=== PATIENT | female | born 1995 | race African-American/Black ===

== ENCOUNTER 2017-01-26 01:25 | Inpatient (IN) | payer BC, OTHER ==
[2017-01-26] VITALS (12 sets, daily range): BP systolic 88–127; BP diastolic 43–77
[~2017-01-26] VITALS: Ht 157.5 cm; Wt 73.9 kg
--- NOTE | 2017-01-26 01:57 | PHYS DOC ---
Past Medical History Past Medical History: No Pertinent History Past Surgical History: No Surgical History Alcohol Use: Occasionally Drug Use: None Adult General Chief Complaint Chief Complaint: ABDOMINAL PAIN HPI HPI Patient is a 21 year old female who presents with complaint of abdominal pain that started earlier this evening. Patient states that the pain came on suddenly. Patient states that she gets the pain in waves and describes the pain as sharp. Patient currently rates her pain as 10 out of 10. Patient denies any associated fever. Patient states that the pain stays localized to the upper abdomen. Patient has had nausea but no vomiting. Patient denies any significant past medical history or surgical history. Patient's last missed her period was 3 days ago. Patient has not taken any medications to help with her symptoms. Patient denies any known exacerbating factors. Review of Systems Review of Systems Constitutional: Denies fever or chills [] Eyes: Denies change in visual acuity, redness, or eye pain [] HENT: Denies nasal congestion or sore throat [] Respiratory: Denies cough or shortness of breath [] Cardiovascular: Denies chest pain or edema [] GI: Abdominal pain, nausea, denies vomiting, bloody stools or diarrhea [] : Denies dysuria or hematuria [] Musculoskeletal: Denies back pain or joint pain [] Integument: Denies rash or skin lesions [] Neurologic: Denies headache, focal weakness or sensory changes [] Current Medications Current Medications Current Medications Medications (Trade) Dose Ordered Sig/[facility] Start Time Stop Time Status Last Admin Dose Admin Famotidine (Pepcid) 20 mg 1X ONCE 01/26/17 02:00 01/26/17 02:01 DC 01/26/17 02:11 20 MG Fentanyl Citrate 50 mcg 50 mcg PRN Q15MIN PRN 01/26/17 02:00 01/27/17 01:59 01/26/17 02:11 50 MCG Ondansetron HCl (Zofran) 4 mg 1X ONCE 01/26/17 02:00 01/26/17 02:01 DC 01/26/17 02:11 4 MG Sodium Chloride (Iv Sodium Chloride 0.9% 1000ml Bag) 1,000 ml @ 1,000 mls/hr Q1H 01/26/17 02:00 01/26/17 02:59 DC 01/26/17 02:11 1,000 MLS/HR Allergies Allergies Allergies Coded Allergies Type Severity Reaction Last Updated Verified No Known Drug Allergies 01/26/17 No Physical Exam Physical Exam Constitutional: Alert, afebrile, appears in moderate to severe discomfort. [] HENT: Normocephalic, atraumatic, bilateral external ears normal, oropharynx moist, no oral exudates, nose normal. [] Eyes: PERRLA, EOMI, conjunctiva normal, no discharge. [] Neck: Normal range of motion, no tenderness, supple, no stridor. [] Cardiovascular:Heart rate regular rhythm, no murmur [] Lungs & Thorax: Bilateral breath sounds clear to auscultation [] Abdomen: Bowel sounds normal, soft, epigastric and right upper quadrant tenderness to palpation, positive Mejia's sign, no masses, no pulsatile masses. [] Skin: Warm, dry, no erythema, no rash. [] Back: No tenderness, no CVA tenderness. [] Extremities: No tenderness, no cyanosis, no clubbing, ROM intact, no edema. [] Neurologic: Alert and oriented X 3, normal motor function, normal sensory function, no focal deficits noted. [] Current Patient Data Vital Signs Vital Signs Date Time Temp Pulse Resp B/P Pulse Ox O2 Delivery O2 Flow Rate FiO2 01/26/17 01:30 97.8 72 19 125/79 95 Room Air 97.8 Lab Values Laboratory Tests Test 01/26/17 01:22 01/26/17 01:39 01/26/17 02:05 POC Urine HCG, Qualitative Hcg negative (Negative) White Blood Count 13.3x10^3/uL (4.0-11.0) H Red Blood Count 5.20x10^6/uL (3.50-5.40) Hemoglobin 11.5g/dL (12.0-15.5) L Hematocrit 37.0% (36.0-47.0) Mean Corpuscular Volume 71fL (79-100) L Mean Corpuscular Hemoglobin 22pg (25-35) L Mean Corpuscular Hemoglobin Concent 31g/dL (31-37) Red Cell Distribution Width 14.9% (11.5-14.5) H Platelet Count 255x10^3/uL (140-400) Neutrophils (%) (Auto) 51% (31-73) Lymphocytes (%) (Auto) 39% (24-48) Monocytes (%) (Auto) 7% (0-9) Eosinophils (%) (Auto) 3% (0-3) Basophils (%) (Auto) 1% (0-3) Neutrophils # (Auto) 6.7x10^3uL (1.8-7.7) Lymphocytes # (Auto) 5.2x10^3/uL (1.0-4.8) H Monocytes # (Auto) 1.0x10^3/uL (0.0-1.1) Eosinophils # (Auto) 0.3x10^3/uL (0.0-0.7) Basophils # (Auto) 0.1x10^3/uL (0.0-0.2) Sodium Level 142mmol/L (136-145) Potassium Level 4.0mmol/L (3.5-5.1) Chloride Level 104mmol/L (98-107) Carbon Dioxide Level 27mmol/L (21-32) Anion Gap 11 (6-14) Blood Urea Nitrogen 10mg/dL (7-20) Creatinine 0.8mg/dL (0.6-1.0) Estimated GFR (Cockcroft-Gault) 107.6 BUN/Creatinine Ratio 13 (6-20) Glucose Level 114mg/dL (70-99) H Calcium Level 9.0mg/dL (8.5-10.1) Total Bilirubin 0.2mg/dL (0.2-1.0) Aspartate Amino Transferase (AST) 47U/L (15-37) H Alanine Aminotransferase (ALT) 29U/L (14-59) Alkaline Phosphatase 58U/L (46-116) Total Protein 7.4g/dL (6.4-8.2) Albumin 3.6g/dL (3.4-5.0) Albumin/Globulin Ratio 0.9 (1.0-1.7) L Lipase 131U/L (73-393) Urine Collection Type Unknown Urine Color Yellow Urine Clarity Cloudy Urine pH 8.0 Urine Specific [place] >=1.030 Urine Protein 30mg/dL (NEG-TRACE) Urine Glucose (UA) Negativemg/dL (NEG) Urine Ketones (Stick) Negativemg/dL (NEG) Urine Blood Negative (NEG) Urine Nitrite Negative (NEG) Urine Bilirubin Negative (NEG) Urine Urobilinogen Dipstick 1.0mg/dL (0.2 mg/dL) Urine Leukocyte Esterase Negative (NEG) Urine RBC 3-5/HPF (0-2) Urine WBC Occ/HPF (0-4) Urine Squamous Epithelial Cells Many/LPF Urine Bacteria Moderate/HPF (0-FEW) Urine Mucus Mod/LPF Laboratory Tests 01/26/17 01:39 Laboratory Tests 01/26/17 01:39 EKG EKG Interpreted by me: Heart rate 72, sinus rhythm, normal intervals, normal axis, no acute ST/T-wave abnormalities present [] Radiology/Procedures Radiology/Procedures [facility] [address] [place] [address] IMAGING REPORT Signed PATIENT: MAYO CUI ACCOUNT: [id number] : 1995 LOCATION: ER AGE: 21 SEX: F EXAM STATUS: REG ER ORD. PHYSICIAN: RADHA HIRSCH MD REASON: epigastric and right upper quadrant pain PROCEDURE: ABDOMEN LTD Examination: Ultrasound right upper quadrant. History: History of right upper quadrant pain, elevated WBC count. COMPARISON None available Findings : The visualized pancreas grossly appears unremarkable. The common bile duct measures 6 millimeters in transverse dimension. The liver measures 16 centimeters. Gallstones with sludge identified in the gallbladder. One of the gallstone appears to be in the fundus of the gallbladder distal to the mucosal fold. The gallbladder wall thickness measures 3.2 millimeters. The examination is positive for ultrasonographic evidence of Mejia's sign. The right kidney measures 10.1 centimeters in length. Impression: 1. 3 gallstones with sludge identified within the gallbladder, 1 of the stones appears to be in the fundus of the stomach beyond the mucosal fold within the gallbladder. There is mild thickened appearance of the gallbladder wall. Examination is positive for ultrasonographic evidence of Mejia's sign. Correlate for cholecystitis. 2. The common bile duct measures 6 millimeters in transverse dimension which is mildly dilated. Electronically signed by: Andi Ochoa (Jan 26, 2017 03:13:29) DICTATED and SIGNED BY: ANDI OCHOA MD DATE: 01/26/17312 CC: ALISHA MENARD; RADHA HIRSCH MD ~ [] Course & Med Decision Making Course & Med Decision Making Pertinent Labs and Imaging studies reviewed. (See chart for details) Patient was treated with IV fluids, fentanyl, and Zofran. Patient's symptoms have improved mildly however patient still complains of significant pain. The patient's ultrasound shows continued suspicion for acute cholecystitis. I consult to Dr. Guajardo of general surgery who agreed to see patient this morning in hospital. Patient admitted to Dr. Bermudez. Dragon Disclaimer Dragon Disclaimer This electronic medical record was generated, in whole or in part, using a voice recognition dictation system. Departure Departure Impression: Primary Impression: Acute cholecystitis Disposition: ADMITTED INPATIENT Admitting Physician: Denise Bermudez Condition: STABLE RADHA HIRSCH MD Jan 26, 2017 01:57
[2017-01-26] MEDS ORDERED: IV NORMAL SALINE 1000ML BAG 1,000 ML IV SCH (02:00)
[2017-01-26] MEDS ORDERED: FAMOTIDINE 20 MG/2 ML VIAL IVP ONE (02:00)
[2017-01-26] MEDS ORDERED: ONDANSETRON PF 4 MG/2 ML VIAL. IV ONE (02:00)
[2017-01-26 02:01] LABS: BASO # 0.1 x10^3/uL (0.0-0.2); BASO % 1 % (0-3); EOS % 3 % (0-3); HEMOGLOBIN 11.5 g/dL (12.0-15.5); LYMPH # 5.2 x10^3/uL (1.0-4.8); LYMPH % 39 % (24-48); MEAN CORPUSCULAR HEMOGLOBIN 22 pg (25-35); MEAN CORPUSCULAR HGB CONC 31 g/dL (31-37); MEAN CORPUSCULAR VOLUME 71 fL (79-100); MONO % 7 % (0-9); NEUT % 51 % (31-73); PLATELET COUNT 255 x10^3/uL (140-400); RED CELL DISTRIBUTION WIDTH 14.9 % (11.5-14.5); WHITE BLOOD COUNT 13.3 x10^3/uL (4.0-11.0)
[2017-01-26] MEDS: FENTANYL PF 100 MCG/2 ML VIAL. IV PRN ×8 (02:11→20:23)
[2017-01-26 02:22] LABS: CREATININE 0.8 mg/dL (0.6-1.0); GFR 107.6
[2017-01-26 02:26] LABS: BILIRUBIN,URINE NEGATIVE (NEG); GLUCOSE,URINE NEGATIVE (NEG); NITRITE,URINE NEGATIVE (NEG); PROTEIN,URINE 30 mg/dL (NEG-TRACE)
[2017-01-26 02:28] LABS: ALBUMIN 3.6 g/dL (3.4-5.0); ALBUMIN/GLOBULIN RATIO 0.9 (1.0-1.7); TOTAL BILIRUBIN 0.2 mg/dL (0.2-1.0); TOTAL PROTEIN 7.4 g/dL (6.4-8.2)
[2017-01-26 02:40] LABS: BACTERIA,URINE MODERATE /HPF (0-FEW); SQUAMOUS EPITHELIAL CELL,UR MANY /LPF; WBC,URINE OCC /HPF (0-4)
--- NOTE | 2017-01-26 03:15 | RAD ---
Examination: Ultrasound right upper quadrant. History: History of right upper quadrant pain, elevated WBC count. COMPARISON None available Findings : The visualized pancreas grossly appears unremarkable. The common bile duct measures 6 millimeters in transverse dimension. The liver measures 16 centimeters. Gallstones with sludge identified in the gallbladder. One of the gallstone appears to be in the fundus of the gallbladder distal to the mucosal fold. The gallbladder wall thickness measures 3.2 millimeters. The examination is positive for ultrasonographic evidence of Mejia's sign. The right kidney measures 10.1 centimeters in length. Impression: 1. 3 gallstones with sludge identified within the gallbladder, 1 of the stones appears to be in the fundus of the stomach beyond the mucosal fold within the gallbladder. There is mild thickened appearance of the gallbladder wall. Examination is positive for ultrasonographic evidence of Mejia's sign. Correlate for cholecystitis. 2. The common bile duct measures 6 millimeters in transverse dimension which is mildly dilated. Electronically signed by: Andi Ochoa (Jan 26, 2017 03:13:29)
[2017-01-26] MEDS ORDERED: ONDANSETRON PF 4 MG/2 ML VIAL. IV PRN (04:00)
[2017-01-26 05:22] LABS: HYPOCHROMIA MOD; MICROCYTOSIS MOD; PLT ESTIMATE ADEQUATE (ADEQUATE); TARGET CELLS OCC; TEAR DROP CELLS OCC
--- NOTE | 2017-01-26 08:15 | PDOC2 ---
KELLI GUIDO [facility]AMP[facility] COORDINATOR 01/26/17 0815: CONSULT Date of Consult Date of Consult DATE: 01/26/17 TIME: 08:09 Reason for Consult Reason for Consult: cholecystitis Referring Physician Referring Physician: ER Identification/Chief Complaint Chief Complaint abdominal pain Source Source: Chart review, Patient History of Present Illness Reason for Visit: Abdominal pain intermittently, thought it was gas pains, aggravated by eating anything. Yesterday the pain was severe, epigastric, RUQ with radiation to her back. Associated nausea, no emesis. No constipation or diarrhea. + difficulty taking a deep breath Past Medical History Past Medical History no pertinent hx Past Surgical History Past Surgical History: No pertinent history Family History Family History: Other (gallbladder disease in mom) Social History No ALCOHOL: social Drugs: None Lives: with Family Current Problem List Problem List Problems Medical Problems: (1) Acute cholecystitis Status: Acute Current Medications Current Medications Current Medications Fentanyl Citrate 50 mcg 50 mcg PRN Q15MIN PRN IV PAIN GREATER THAN 3/10 Last administered on 01/26/17 03:35; Start 01/26/17 at 02:00; Stop 01/27/17 at 01:59 Sodium Chloride (Iv Sodium Chloride 0.9% 1000ml Bag) 1,000 ml @ 1,000 mls/hr Q1H IV Last administered on 01/26/17 02:11; Start 01/26/17 at 02:00; Stop at 02:59; Status DC Ondansetron HCl (Zofran) 4 mg 1X ONCE IV Last administered on 01/26/17 02:11 ; Start 01/26/17 at 02:00; Stop 01/26/17 at 02:01; Status DC Famotidine (Pepcid) 20 mg 1X ONCE IVP Last administered on 01/26/17 02:11; Start 01/26/17 at 02:00; Stop 01/26/17 at 02:01; Status DC Ondansetron HCl (Zofran) 4 mg PRN Q8HRS PRN IV NAUSEA/VOMITING; Start 01/26/17 at 04:00; Stop 01/27/17 at 03:59 Fentanyl Citrate (Fentanyl 2ml Vial) 50 mcg PRN Q1HR PRN IV PAIN; Start at 04:00; Stop 01/27/17 at 03:59 Allergies Allergies: Coded Allergies: No Known Drug Allergies (Unverified , 01/26/17) ROS General: YES: Chills, No: Other (fevers) PSYCHOLOGICAL ROS: No: Anxiety, Depression Eyes: No Blurry vision, No Double vision HEENT: No: Heacaches, Sore Throat Hematological and Lymphatic: No: Bleeding Problems, Blood Clots Respiratory: No: Cough, Shortness of breath (due to acute abdominal pain) Cardiovascular: No Chest Pain, No Palpitations Gastrointestinal: Yes Other (see hpi) Genitourinary: No Dysuria, No Hematuria Musculoskeletal: No Joint Pain, No Muscle Pain Neurological: No Confusion, No Numbness/Tingling Skin: No Pruritus, No Rash Physical Exam General: Alert, Oriented X3, Cooperative, No acute distress HEENT: PERRLA, Mucous membr. moist/pink Lungs: Clear to auscultation, Normal air movement Heart: Regular rate, Normal S1, Normal S2, No murmurs Abdomen: Soft, Other (ND, tender to epigastric, RUQ) Extremities: No clubbing, No cyanosis Skin: No rashes, No breakdown Neuro: Normal speech, Sensation intact Psych/Mental Status: Mental status NL, Mood NL MUSCULOSKELETAL: No deformity, No swelling Vitals VITALS Vital Signs Date Time Temp Pulse Resp B/P Pulse Ox O2 Delivery O2 Flow Rate FiO2 01/26/17 04:47 97.8 72 20 127/77 98 Room Air 97.8 Labs Labs Laboratory Tests Test 01/26/17 01:22 01/26/17 01:39 01/26/17 02:05 Bedside Urine HCG, Qualitative Hcg negative (Negative) White Blood Count 13.3x10^3/uL (4.0-11.0) Red Blood Count 5.20x10^6/uL (3.50-5.40) Hemoglobin 11.5g/dL (12.0-15.5) Hematocrit 37.0% (36.0-47.0) Mean Corpuscular Volume 71fL (79-100) Mean Corpuscular Hemoglobin 22pg (25-35) Mean Corpuscular Hemoglobin Concent 31g/dL (31-37) Red Cell Distribution Width 14.9% (11.5-14.5) Platelet Count 255x10^3/uL (140-400) Neutrophils (%) (Auto) 51% (31-73) Lymphocytes (%) (Auto) 39% (24-48) Monocytes (%) (Auto) 7% (0-9) Eosinophils (%) (Auto) 3% (0-3) Basophils (%) (Auto) 1% (0-3) Neutrophils # (Auto) 6.7x10^3uL (1.8-7.7) Lymphocytes # (Auto) 5.2x10^3/uL (1.0-4.8) Monocytes # (Auto) 1.0x10^3/uL (0.0-1.1) Eosinophils # (Auto) 0.3x10^3/uL (0.0-0.7) Basophils # (Auto) 0.1x10^3/uL (0.0-0.2) Platelet Estimate Adequate (ADEQUATE) Giant Platelets Occ Hypochromasia Mod Microcytosis Mod Target Cells Occ Tear Drop Cells Occ Sodium Level 142mmol/L (136-145) Potassium Level 4.0mmol/L (3.5-5.1) Chloride Level 104mmol/L (98-107) Carbon Dioxide Level 27mmol/L (21-32) Anion Gap 11 (6-14) Blood Urea Nitrogen 10mg/dL (7-20) Creatinine 0.8mg/dL (0.6-1.0) Estimated GFR (Cockcroft-Gault) 107.6 BUN/Creatinine Ratio 13 (6-20) Glucose Level 114mg/dL (70-99) Calcium Level 9.0mg/dL (8.5-10.1) Total Bilirubin 0.2mg/dL (0.2-1.0) Aspartate Amino Transf (AST/SGOT) 47U/L (15-37) Alanine Aminotransferase (ALT/SGPT) 29U/L (14-59) Alkaline Phosphatase 58U/L (46-116) Total Protein 7.4g/dL (6.4-8.2) Albumin 3.6g/dL (3.4-5.0) Albumin/Globulin Ratio 0.9 (1.0-1.7) Lipase 131U/L (73-393) Urine Collection Type Unknown Urine Color Yellow Urine Clarity Cloudy Urine pH 8.0 Urine Specific [place] >=1.030 Urine Protein 30mg/dL (NEG-TRACE) Urine Glucose (UA) Negativemg/dL (NEG) Urine Ketones (Stick) Negativemg/dL (NEG) Urine Blood Negative (NEG) Urine Nitrite Negative (NEG) Urine Bilirubin Negative (NEG) Urine Urobilinogen Dipstick 1.0mg/dL (0.2 mg/dL) Urine Leukocyte Esterase Negative (NEG) Urine RBC 3-5/HPF (0-2) Urine WBC Occ/HPF (0-4) Urine Squamous Epithelial Cells Many/LPF Urine Bacteria Moderate/HPF (0-FEW) Urine Mucus Mod/LPF Laboratory Tests Test 01/26/17 01:22 01/26/17 01:39 01/26/17 02:05 Bedside Urine HCG, Qualitative Hcg negative (Negative) White Blood Count 13.3x10^3/uL (4.0-11.0) Red Blood Count 5.20x10^6/uL (3.50-5.40) Hemoglobin 11.5g/dL (12.0-15.5) Hematocrit 37.0% (36.0-47.0) Mean Corpuscular Volume 71fL (79-100) Mean Corpuscular Hemoglobin 22pg (25-35) Mean Corpuscular Hemoglobin Concent 31g/dL (31-37) Red Cell Distribution Width 14.9% (11.5-14.5) Platelet Count 255x10^3/uL (140-400) Neutrophils (%) (Auto) 51% (31-73) Lymphocytes (%) (Auto) 39% (24-48) Monocytes (%) (Auto) 7% (0-9) Eosinophils (%) (Auto) 3% (0-3) Basophils (%) (Auto) 1% (0-3) Neutrophils # (Auto) 6.7x10^3uL (1.8-7.7) Lymphocytes # (Auto) 5.2x10^3/uL (1.0-4.8) Monocytes # (Auto) 1.0x10^3/uL (0.0-1.1) Eosinophils # (Auto) 0.3x10^3/uL (0.0-0.7) Basophils # (Auto) 0.1x10^3/uL (0.0-0.2) Platelet Estimate Adequate (ADEQUATE) Giant Platelets Occ Hypochromasia Mod Microcytosis Mod Target Cells Occ Tear Drop Cells Occ Sodium Level 142mmol/L (136-145) Potassium Level 4.0mmol/L (3.5-5.1) Chloride Level 104mmol/L (98-107) Carbon Dioxide Level 27mmol/L (21-32) Anion Gap 11 (6-14) Blood Urea Nitrogen 10mg/dL (7-20) Creatinine 0.8mg/dL (0.6-1.0) Estimated GFR (Cockcroft-Gault) 107.6 BUN/Creatinine Ratio 13 (6-20) Glucose Level 114mg/dL (70-99) Calcium Level 9.0mg/dL (8.5-10.1) Total Bilirubin 0.2mg/dL (0.2-1.0) Aspartate Amino Transf (AST/SGOT) 47U/L (15-37) Alanine Aminotransferase (ALT/SGPT) 29U/L (14-59) Alkaline Phosphatase 58U/L (46-116) Total Protein 7.4g/dL (6.4-8.2) Albumin 3.6g/dL (3.4-5.0) Albumin/Globulin Ratio 0.9 (1.0-1.7) Lipase 131U/L (73-393) Urine Collection Type Unknown Urine Color Yellow Urine Clarity Cloudy Urine pH 8.0 Urine Specific [place] >=1.030 Urine Protein 30mg/dL (NEG-TRACE) Urine Glucose (UA) Negativemg/dL (NEG) Urine Ketones (Stick) Negativemg/dL (NEG) Urine Blood Negative (NEG) Urine Nitrite Negative (NEG) Urine Bilirubin Negative (NEG) Urine Urobilinogen Dipstick 1.0mg/dL (0.2 mg/dL) Urine Leukocyte Esterase Negative (NEG) Urine RBC 3-5/HPF (0-2) Urine WBC Occ/HPF (0-4) Urine Squamous Epithelial Cells Many/LPF Urine Bacteria Moderate/HPF (0-FEW) Urine Mucus Mod/LPF Assessment/Plan Assessment/Plan acute cholecystitis obesity BMI 30 plan lap mila today CHELSEA AGUIRRE MD 01/26/17 1144: CONSULT Allergies Allergies: Coded Allergies: No Known Drug Allergies (Unverified , 01/26/17) Assessment/Plan Assessment/Plan Pt seen and examined by myself; 21 year old female reported to the ER with acute abdominal and chest pain. The pain was located in the upper mid abdomen/ lower chest with radiation to the RUQ. She had associated nausea. She has had prior episodes of this pain over the last year or two but never as severe. PMH/ PSH/ROS/SH as above, reviewed; exam: alert, oriented NAD, no scleral icterus, no neck masses, lungs clear, heart RR and R, abd soft, tender RUQ, no masses, ext neg for deformity or edema, neuro sensory and motor function grossly intact all 4 extremities; Sono reviewed; A/P) Suspect acute cholecystitis, plan to OR for lap mila. The details/risks of surgery were discussed. She understands and would like to proceed. KELLI GUIDO APRN Jan 26, 2017 08:15 CHELSEA AGUIRRE MD Jan 26, 2017 11:44
[2017-01-26] MEDS ORDERED: PROPOFOL 20 ML IV ONE (09:51)
[2017-01-26] MEDS ORDERED: MIDAZOLAM HCL 2 MG/2 ML VIAL. ONE (09:51)
[2017-01-26] MEDS ORDERED: ONDANSETRON PF 4 MG/2 ML VIAL. ONE (09:51)
[2017-01-26] MEDS ORDERED: DEXAMETHASONE SOD PHOS 20 MG/5 ML VIAL. ONE (09:51)
[2017-01-26] MEDS ORDERED: LIDOCAINE 2% 100 MG/5 ML DISP.SYRIN. ONE (09:51)
[2017-01-26] MEDS ORDERED: ROCURONIUM 50 MG/5 ML VIAL. ONE (09:52)
[2017-01-26] MEDS ORDERED: FENTANYL PF 100 MCG/2 ML VIAL. ONE (09:54)
[2017-01-26] MEDS ORDERED: SUCCINYLCHOLINE 200 MG/10 ML VIAL. ONE (09:54)
[2017-01-26] MEDS ORDERED: IOHEXOL 300 MG/ML 50 ML VIAL. ONE (11:17)
[2017-01-26] MEDS ORDERED: SURGICEL HEMOSTAT 4X8 EACH. ONE (11:17)
[2017-01-26] MEDS ORDERED: BUPIVAC MPF-EPI 0.5%-1:200000 30 ML VIAL. ONE (11:17)
--- NOTE | 2017-01-26 11:29 | EKG ---
[facility] [address] [place] [address] Test Date: 2017-01-26 Test Time: 01:32:07 Pat Name: MAYO CUI Department: Room: Gender: F Recruiter Account Manager: : 1995 Requested By: RADHA HIRSCH Order Number: [id number] Reading MD: Measurements Intervals [place] Rate: 72 P: 43 ME: 174 QRS: 24 QRSD: 68 T: 20 QT: 370 QTc: 407 Interpretive Statements SINUS RHYTHM OTHERWISE NORMAL ECG RI6.01 No previous ECG available for comparison
[2017-01-26] MEDS ORDERED: PIPERACILLIN/TAZOBACTAM 3.375 GM in IV NORMAL SALINE 50ML 50 ML IV SCH (11:45)
[2017-01-26] MEDS ORDERED: FAMOTIDINE 20 MG/2 ML VIAL ONE ×2 (11:59→12:00)
[2017-01-26] MEDS ORDERED: KETOROLAC 30 MG/ML SYRINGE FOR OR. INJ ONE (12:01)
[2017-01-26] MEDS ORDERED: GLYCOPYRROLATE 1 MG/5 ML VIAL. ONE (12:26)
[2017-01-26] MEDS ORDERED: NEOSTIGMINE METHYLSULFATE 5 MG/5 ML SYRINGE. ONE (12:26)
--- NOTE | 2017-01-26 12:35 | RAD ---
Indication intraoperative cholangiogram. For members of the Department of surgery fluoroscopy was provided. 4 spot fluoroscopic images were obtained. Fluoroscopy time associated with the examination was 0.24 minutes. On 3 of the images there are filling defects in the common hepatic duct. These may reflect air bubbles. A stone in the common hepatic duct is not entirely excluded. The common bile duct appears unremarkable. Contrast flows unremarkably into the duodenum IMPRESSION: Filling defects, probably reflecting air, in the common hepatic duct. The common bile duct appears unremarkable
--- NOTE | 2017-01-26 12:47 | PDOC1 ---
History and Physical Date of Admission Date of Admission DATE: 01/26/17 TIME: 12:45 Identification/Chief Complaint Chief Complaint abd pain Source Source: Caregiver, Chart review, Patient History of Present Illness History of Present Illness 21 y.o Female no signif past medical, hx reviewed from chart as pt having lap mila now. Per GS note: abdominal pain intermittently, thought it was gas pains, aggravated by eating anything 1 day [employer], the pain was severe, epigastric, RUQ with radiation to her back. Associated nausea, no emesis. No constipation or diarrhea. + difficulty taking a deep breath Past Medical History Cardiovascular: No pertinent hx Pulmonary: No pertinent hx GI: No pertinent hx Heme/Onc: No pertinent hx Hepatobiliary: No pertinent hx Psych: No pertinent hx Rheumatologic: No pertinent hx Infectious disease: No pertinent hx, Bacterial vaginosis ENT: No pertinent hx Renal/: No pertinent hx Endocrine: No pertinent hx Dermatology: No pertinent hx Past Surgical History Past Surgical History: No pertinent history Family History Family History: Other (gallbladder disease in mom) Social History Smoke: No ALCOHOL: none Drugs: None Current Problem List Problem List Problems Medical Problems: (1) Acute cholecystitis Status: Acute Problems: Current Medications Current Medications Current Medications Fentanyl Citrate 50 mcg 50 mcg PRN Q15MIN PRN IV PAIN GREATER THAN 3/10 Last administered on 01/26/17 03:35; Start 01/26/17 at 02:00; Stop 01/27/17 at 01:59 Sodium Chloride (Iv Sodium Chloride 0.9% 1000ml Bag) 1,000 ml @ 1,000 mls/hr Q1H IV Last administered on 01/26/17 02:11; Start 01/26/17 at 02:00; Stop at 02:59; Status DC Ondansetron HCl (Zofran) 4 mg 1X ONCE IV Last administered on 01/26/17 02:11 ; Start 01/26/17 at 02:00; Stop 01/26/17 at 02:01; Status DC Famotidine (Pepcid) 20 mg 1X ONCE IVP Last administered on 01/26/17 02:11; Start 01/26/17 at 02:00; Stop 01/26/17 at 02:01; Status DC Ondansetron HCl (Zofran) 4 mg PRN Q8HRS PRN IV NAUSEA/VOMITING; Start 01/26/17 at 04:00; Stop 01/27/17 at 03:59 Fentanyl Citrate (Fentanyl 2ml Vial) 50 mcg PRN Q1HR PRN IV PAIN Last administered on 01/26/17 08:54; Start 01/26/17 at 04:00; Stop 01/27/17 at 03:59 Dexamethasone Sodium Phosphate (Decadron) 20 mg STK-MED ONCE .ROUTE ; Start at 09:51; Stop 01/26/17 at 09:52; Status DC Ondansetron HCl 4 mg 4 mg STK-MED ONCE .ROUTE ; Start 01/26/17 at 09:51; Stop at 09:52; Status DC Propofol (Diprivan) 20 ml @ As Directed STK-MED ONCE IV ; Start 01/26/17 at 09: 51; Stop 01/26/17 at 09:52; Status DC Lidocaine HCl 100 mg STK-MED ONCE .ROUTE ; Start 01/26/17 at 09:51; Stop at 09:52; Status DC Midazolam HCl (Versed) 2 mg STK-MED ONCE .ROUTE ; Start 01/26/17 at 09:51; Stop 01/26/17 at 09:52; Status DC Rocuronium Sterling (Zemuron) 50 mg STK-MED ONCE .ROUTE ; Start 01/26/17 at 09:52 ; Stop 01/26/17 at 09:53; Status DC Fentanyl Citrate (Fentanyl 2ml Vial) 100 mcg STK-MED ONCE .ROUTE ; Start at 09:54; Stop 01/26/17 at 09:55; Status DC Succinylcholine Chloride (Anectine) 200 mg STK-MED ONCE .ROUTE ; Start 01/26/17 at 09:54; Stop 01/26/17 at 09:55; Status DC Cellulose 1 each STK-MED ONCE .ROUTE ; Start 01/26/17 at 11:17; Stop 01/26/17 at 11:18; Status DC Bupivacaine HCl/ Epinephrine Bitart (Sensorcain-Mpf Epi 0.5%-1:[id number]) 30 ml STK -MED ONCE .ROUTE Last administered on 01/26/17 12:04; Start 01/26/17 at 11:17 ; Stop 01/26/17 at 11:18; Status DC Iohexol 50 ml 50 ml STK-MED ONCE .ROUTE Last administered on 01/26/17 12:04; Start 01/26/17 at 11:17; Stop 01/26/17 at 11:18; Status DC Piperacillin Sod/ Tazobactam Sod/ Sodium Chloride (Zosyn/Iv Sodium Chloride 0.9 % 50ml) 50 ml @ 100 mls/hr 1X PREOP IV Last administered on 01/26/17 12:14; Start 01/26/17 at 11:45 Famotidine (Pepcid) 20 mg STK-MED ONCE .ROUTE ; Start 01/26/17 at 11:59; Stop at 12:00; Status DC Famotidine (Pepcid) 20 mg STK-MED ONCE .ROUTE ; Start 01/26/17 at 12:00; Stop at 12:01; Status DC Ketorolac Tromethamine (Toradol For Or Only) 30 mg STK-MED ONCE INJ ; Start at 12:01; Stop 01/26/17 at 12:02; Status DC Glycopyrrolate (Robinul) 1 mg STK-MED ONCE .ROUTE ; Start 01/26/17 at 12:26; Stop 01/26/17 at 12:27; Status DC Neostigmine Methylsulfate 5 mg STK-MED ONCE .ROUTE ; Start 01/26/17 at 12:26; Stop 01/26/17 at 12:27; Status DC Allergies Allergies: Coded Allergies: No Known Drug Allergies (Unverified , 01/26/17) Vitals Vitals Vital Signs Date Time Temp Pulse Resp B/P Pulse Ox O2 Delivery O2 Flow Rate FiO2 01/26/17 11:00 98.2 55 18 102/46 100 Room Air 98.2 Labs Labs Laboratory Tests Test 01/26/17 01:22 01/26/17 01:39 01/26/17 02:05 Bedside Urine HCG, Qualitative Hcg negative (Negative) White Blood Count 13.3x10^3/uL (4.0-11.0) Red Blood Count 5.20x10^6/uL (3.50-5.40) Hemoglobin 11.5g/dL (12.0-15.5) Hematocrit 37.0% (36.0-47.0) Mean Corpuscular Volume 71fL (79-100) Mean Corpuscular Hemoglobin 22pg (25-35) Mean Corpuscular Hemoglobin Concent 31g/dL (31-37) Red Cell Distribution Width 14.9% (11.5-14.5) Platelet Count 255x10^3/uL (140-400) Neutrophils (%) (Auto) 51% (31-73) Lymphocytes (%) (Auto) 39% (24-48) Monocytes (%) (Auto) 7% (0-9) Eosinophils (%) (Auto) 3% (0-3) Basophils (%) (Auto) 1% (0-3) Neutrophils # (Auto) 6.7x10^3uL (1.8-7.7) Lymphocytes # (Auto) 5.2x10^3/uL (1.0-4.8) Monocytes # (Auto) 1.0x10^3/uL (0.0-1.1) Eosinophils # (Auto) 0.3x10^3/uL (0.0-0.7) Basophils # (Auto) 0.1x10^3/uL (0.0-0.2) Platelet Estimate Adequate (ADEQUATE) Giant Platelets Occ Hypochromasia Mod Microcytosis Mod Target Cells Occ Tear Drop Cells Occ Sodium Level 142mmol/L (136-145) Potassium Level 4.0mmol/L (3.5-5.1) Chloride Level 104mmol/L (98-107) Carbon Dioxide Level 27mmol/L (21-32) Anion Gap 11 (6-14) Blood Urea Nitrogen 10mg/dL (7-20) Creatinine 0.8mg/dL (0.6-1.0) Estimated GFR (Cockcroft-Gault) 107.6 BUN/Creatinine Ratio 13 (6-20) Glucose Level 114mg/dL (70-99) Calcium Level 9.0mg/dL (8.5-10.1) Total Bilirubin 0.2mg/dL (0.2-1.0) Aspartate Amino Transf (AST/SGOT) 47U/L (15-37) Alanine Aminotransferase (ALT/SGPT) 29U/L (14-59) Alkaline Phosphatase 58U/L (46-116) Total Protein 7.4g/dL (6.4-8.2) Albumin 3.6g/dL (3.4-5.0) Albumin/Globulin Ratio 0.9 (1.0-1.7) Lipase 131U/L (73-393) Urine Collection Type Unknown Urine Color Yellow Urine Clarity Cloudy Urine pH 8.0 Urine Specific T[place] >=1.030 Urine Protein 30mg/dL (NEG-TRACE) Urine Glucose (UA) Negativemg/dL (NEG) Urine Ketones (Stick) Negativemg/dL (NEG) Urine Blood Negative (NEG) Urine Nitrite Negative (NEG) Urine Bilirubin Negative (NEG) Urine Urobilinogen Dipstick 1.0mg/dL (0.2 mg/dL) Urine Leukocyte Esterase Negative (NEG) Urine RBC 3-5/HPF (0-2) Urine WBC Occ/HPF (0-4) Urine Squamous Epithelial Cells Many/LPF Urine Bacteria Moderate/HPF (0-FEW) Urine Mucus Mod/LPF Laboratory Tests Test 01/26/17 01:22 01/26/17 01:39 01/26/17 02:05 Bedside Urine HCG, Qualitative Hcg negative (Negative) White Blood Count 13.3x10^3/uL (4.0-11.0) Red Blood Count 5.20x10^6/uL (3.50-5.40) Hemoglobin 11.5g/dL (12.0-15.5) Hematocrit 37.0% (36.0-47.0) Mean Corpuscular Volume 71fL (79-100) Mean Corpuscular Hemoglobin 22pg (25-35) Mean Corpuscular Hemoglobin Concent 31g/dL (31-37) Red Cell Distribution Width 14.9% (11.5-14.5) Platelet Count 255x10^3/uL (140-400) Neutrophils (%) (Auto) 51% (31-73) Lymphocytes (%) (Auto) 39% (24-48) Monocytes (%) (Auto) 7% (0-9) Eosinophils (%) (Auto) 3% (0-3) Basophils (%) (Auto) 1% (0-3) Neutrophils # (Auto) 6.7x10^3uL (1.8-7.7) Lymphocytes # (Auto) 5.2x10^3/uL (1.0-4.8) Monocytes # (Auto) 1.0x10^3/uL (0.0-1.1) Eosinophils # (Auto) 0.3x10^3/uL (0.0-0.7) Basophils # (Auto) 0.1x10^3/uL (0.0-0.2) Platelet Estimate Adequate (ADEQUATE) Giant Platelets Occ Hypochromasia Mod Microcytosis Mod Target Cells Occ Tear Drop Cells Occ Sodium Level 142mmol/L (136-145) Potassium Level 4.0mmol/L (3.5-5.1) Chloride Level 104mmol/L (98-107) Carbon Dioxide Level 27mmol/L (21-32) Anion Gap 11 (6-14) Blood Urea Nitrogen 10mg/dL (7-20) Creatinine 0.8mg/dL (0.6-1.0) Estimated GFR (Cockcroft-Gault) 107.6 BUN/Creatinine Ratio 13 (6-20) Glucose Level 114mg/dL (70-99) Calcium Level 9.0mg/dL (8.5-10.1) Total Bilirubin 0.2mg/dL (0.2-1.0) Aspartate Amino Transf (AST/SGOT) 47U/L (15-37) Alanine Aminotransferase (ALT/SGPT) 29U/L (14-59) Alkaline Phosphatase 58U/L (46-116) Total Protein 7.4g/dL (6.4-8.2) Albumin 3.6g/dL (3.4-5.0) Albumin/Globulin Ratio 0.9 (1.0-1.7) Lipase 131U/L (73-393) Urine Collection Type Unknown Urine Color Yellow Urine Clarity Cloudy Urine pH 8.0 Urine Specific [place] >=1.030 Urine Protein 30mg/dL (NEG-TRACE) Urine Glucose (UA) Negativemg/dL (NEG) Urine Ketones (Stick) Negativemg/dL (NEG) Urine Blood Negative (NEG) Urine Nitrite Negative (NEG) Urine Bilirubin Negative (NEG) Urine Urobilinogen Dipstick 1.0mg/dL (0.2 mg/dL) Urine Leukocyte Esterase Negative (NEG) Urine RBC 3-5/HPF (0-2) Urine WBC Occ/HPF (0-4) Urine Squamous Epithelial Cells Many/LPF Urine Bacteria Moderate/HPF (0-FEW) Urine Mucus Mod/LPF VTE Prophylaxis Ordered VTE Prophylaxis Devices: Yes VTE Pharmacological Prophylaxi: Yes Assessment/Plan Assessment/Plan 1. Acute cholecystitis - undergoing lap mila today Will see post OR LAbs post op Post op pain control BRAYDEN LINARES MD Jan 26, 2017 12:47
--- NOTE | 2017-01-26 12:52 | PDOC4 ---
Operative Note Operative Note Operative Note: Preoperative Diagnosis: Calculous cholecystitis Postoperative Diagnosis: Same Procedure: Laparoscopic cholecystectomy with intraoperative cholangiogram Surgeons: Bennett Editor At Large: Carmela GRIGSBY Anesthesia: Gen. Estimated Blood Loss: 10 mL Specimen: Gallbladder to pathology Drains: None Complications: None Indications: The patient is a 21 year old female who is been experiencing recurrent upper abdominal pain. Her evaluation was consistent with calculous cholecystitis. Surgical treatment was offered by means of a laparoscopic cholecystectomy. The risks of surgery were discussed which include bleeding, infection, bile duct injury, bile leak, pain, the potential for additional surgeries or procedures. The patient understands and would like to proceed. Description: The patient was taken to the operating room and laid supine on the operating table. General anesthesia was performed. The abdomen was prepped with ChloraPrep and draped in a standard surgical fashion. A small infraumbilical incision was made with a scalpel. The Veress needle was then inserted and a pneumoperitoneum was then created. A 5 mm trocar was then inserted and the laparoscope was introduced. In the upper midabdomen a 5 mm trocar was inserted and in the right upper quadrant two 2.3 mm mini lap graspers were inserted. The gallbladder was retracted cephalad. The cystic duct was dissected free from surrounding tissues. One clip was placed on the duct near the gallbladder junction. An opening was made in the duct and a cholangiocatheter placed within and secured with a clip. Using contrast dye and fluoroscopy an intraoperative cholangiogram was performed. A few small filling defects were seen in the hepatic duct, but the appearance was most consistent with small air bubbles. There was no obstructive effect and contrast readily passed into the duodenum. The clip and catheter were then withdrawn. Three clips were placed on the cystic duct and it was divided. The cystic artery was then identified, dissected free, doubly clipped and divided as well. The gallbladder was then mobilized away from the liver with cautery. The umbilical 5 millimeter trocar was exchanged for an 11 millimeter trocar. The gallbladder was then placed in an endoscopic bag and extracted at the umbilical trocar site. The fascia there was closed with an 0-PDS sutures. All blood and irrigation fluid was suctioned and hemostasis was good. The remaining ports were removed and the pneumoperitoneum was relieved. The skin incisions were injected with half percent Marcaine with epinephrine, and all were closed using 4-0 Monocryl suture. Steri-Strips and dressings were then applied. The patient tolerated the procedure well and was sent to the recovery room in stable condition. At the end of the case all counts were correct. CHELSEA AGUIRRE MD Jan 26, 2017 12:52
[2017-01-26] MEDS ORDERED: SEVOFLURANE 31 TO 60 MINUTES. IH ONE (13:02)
[2017-01-26] MEDS ORDERED: PROCHLORPERAZINE 10 MG/2 ML VIAL. ONE (13:14)
[2017-01-26] MEDS ORDERED: OXYCODONE/APAP 5/325 TABLET. PO PRN ×2 (13:30→13:45)
[2017-01-26] MEDS ORDERED: FENTANYL PF 100 MCG/2 ML VIAL. IV PRN (14:45)
[2017-01-26] MEDS ORDERED: PROCHLORPERAZINE 10 MG/2 ML VIAL. IV PRN (14:45)
[2017-01-26] MEDS: OXYCODONE/APAP 5/325 TABLET. PO PRN (20:23)
[2017-01-27 03:32] VITALS: BP 98/41
[2017-01-27 04:09] LABS: BASO % 0 % (0-3); EOS % 0 % (0-3); HEMATOCRIT 34.2 % (36.0-47.0); HEMOGLOBIN 10.7 g/dL (12.0-15.5); LYMPH # 1.4 x10^3/uL (1.0-4.8); LYMPH % 11 % (24-48); MEAN CORPUSCULAR HEMOGLOBIN 22 pg (25-35); MEAN CORPUSCULAR HGB CONC 31 g/dL (31-37); MEAN CORPUSCULAR VOLUME 70 fL (79-100); MONO % 5 % (0-9); NEUT % 84 % (31-73); PLATELET COUNT 252 x10^3/uL (140-400); RED BLOOD COUNT 4.86 x10^6/uL (3.50-5.40); RED CELL DISTRIBUTION WIDTH 15.2 % (11.5-14.5); WHITE BLOOD COUNT 12.7 x10^3/uL (4.0-11.0)
[2017-01-27 04:42] LABS: CALCIUM 8.8 mg/dL (8.5-10.1); CREATININE 0.7 mg/dL (0.6-1.0); GFR 125.5; POTASSIUM 3.9 mmol/L (3.5-5.1)
[2017-01-27 07:00] VITALS: BP 104/52
[2017-01-27] MEDS: OXYCODONE/APAP 5/325 TABLET. PO PRN (08:36)
[2017-01-27 11:00] VITALS: BP 102/49
--- NOTE | 2017-01-27 11:07 | PDOC ---
PROGRESS NOTES Chief Complaint Chief Complaint Abdominal pain History of Present Illness History of Present Illness No acute events overnight. Yesterday, she underwent laparoscopic cholecystectomy for acute cholecystitis. Patient is seen this morning sitting up in bed, she reports she is doing well. She has an appetite and was waiting on breakfast. 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 Vitals Vitals Vital Signs Date Time Temp Pulse Resp B/P Pulse Ox O2 Delivery O2 Flow Rate FiO2 01/27/17 09:37 Room Air 01/27/17 07:00 98.2 59 16 104/52 99 98.2 01/26/17 13:19 10.0 Physical Exam General: Alert, Oriented X3, Cooperative, No acute distress Heart: Regular rate, Normal S1, Normal S2 Lungs: Clear, Other (no crackles) Abdomen: Soft, Other (dressings CDI, no drainage, minimal tenderness) Extremities: No edema, Normal pulses Skin: No rashes, No significant lesion Labs LABS Laboratory Tests Test 01/27/17 03:32 White Blood Count 12.7x10^3/uL (4.0-11.0) Red Blood Count 4.86x10^6/uL (3.50-5.40) Hemoglobin 10.7g/dL (12.0-15.5) Hematocrit 34.2% (36.0-47.0) Mean Corpuscular Volume 70fL (79-100) Mean Corpuscular Hemoglobin 22pg (25-35) Mean Corpuscular Hemoglobin Concent 31g/dL (31-37) Red Cell Distribution Width 15.2% (11.5-14.5) Platelet Count 252x10^3/uL (140-400) Neutrophils (%) (Auto) 84% (31-73) Lymphocytes (%) (Auto) 11% (24-48) Monocytes (%) (Auto) 5% (0-9) Eosinophils (%) (Auto) 0% (0-3) Basophils (%) (Auto) 0% (0-3) Neutrophils # (Auto) 10.6x10^3uL (1.8-7.7) Lymphocytes # (Auto) 1.4x10^3/uL (1.0-4.8) Monocytes # (Auto) 0.6x10^3/uL (0.0-1.1) Eosinophils # (Auto) 0.0x10^3/uL (0.0-0.7) Basophils # (Auto) 0.0x10^3/uL (0.0-0.2) Sodium Level 140mmol/L (136-145) Potassium Level 3.9mmol/L (3.5-5.1) Chloride Level 105mmol/L (98-107) Carbon Dioxide Level 26mmol/L (21-32) Anion Gap 9 (6-14) Blood Urea Nitrogen 5mg/dL (7-20) Creatinine 0.7mg/dL (0.6-1.0) Estimated GFR (Cockcroft-Gault) 125.5 Glucose Level 120mg/dL (70-99) Calcium Level 8.8mg/dL (8.5-10.1) Review of Systems Review of Systems Denies chest pain and shortness of breath. Denies fever and chills. Reports she is feeling better and ready to go home. Assessment and Plan Assessmemt and Plan Problems Medical Problems: (1) Acute cholecystitis Status: Acute ASSESSMENT: Acute Cholecystitis, POD #1 laparoscopic cholecystectomy Leukocytosis - trending down PLAN: Surgery is following, their recommendations are appreciated Continue pain control Advance diet as tolerated Encourage ambulation Continue to trend daily labs, WBC Plan discussed with patient and RN Probable discharge today if cleared by surgery Problems: Comment Review of Relevant I have reviewed the following items leroy (where applicable) has been applied. Labs Laboratory Tests Test 01/26/17 01:22 01/26/17 01:39 01/26/17 02:05 01/27/17 03:32 Bedside Urine HCG, Qualitative Hcg negative (Negative) White Blood Count 13.3x10^3/uL (4.0-11.0) 12.7x10^3/uL (4.0-11.0) Red Blood Count 5.20x10^6/uL (3.50-5.40) 4.86x10^6/uL (3.50-5.40) Hemoglobin 11.5g/dL (12.0-15.5) 10.7g/dL (12.0-15.5) Hematocrit 37.0% (36.0-47.0) 34.2% (36.0-47.0) Mean Corpuscular Volume 71fL (79-100) 70fL (79-100) Mean Corpuscular Hemoglobin 22pg (25-35) 22pg (25-35) Mean Corpuscular Hemoglobin Concent 31g/dL (31-37) 31g/dL (31-37) Red Cell Distribution Width 14.9% (11.5-14.5) 15.2% (11.5-14.5) Platelet Count 255x10^3/uL (140-400) 252x10^3/uL (140-400) Neutrophils (%) (Auto) 51% (31-73) 84% (31-73) Lymphocytes (%) (Auto) 39% (24-48) 11% (24-48) Monocytes (%) (Auto) 7% (0-9) 5% (0-9) Eosinophils (%) (Auto) 3% (0-3) 0% (0-3) Basophils (%) (Auto) 1% (0-3) 0% (0-3) Neutrophils # (Auto) 6.7x10^3uL (1.8-7.7) 10.6x10^3uL (1.8-7.7) Lymphocytes # (Auto) 5.2x10^3/uL (1.0-4.8) 1.4x10^3/uL (1.0-4.8) Monocytes # (Auto) 1.0x10^3/uL (0.0-1.1) 0.6x10^3/uL (0.0-1.1) Eosinophils # (Auto) 0.3x10^3/uL (0.0-0.7) 0.0x10^3/uL (0.0-0.7) Basophils # (Auto) 0.1x10^3/uL (0.0-0.2) 0.0x10^3/uL (0.0-0.2) Platelet Estimate Adequate (ADEQUATE) Giant Platelets Occ Hypochromasia Mod Microcytosis Mod Target Cells Occ Tear Drop Cells Occ Sodium Level 142mmol/L (136-145) 140mmol/L (136-145) Potassium Level 4.0mmol/L (3.5-5.1) 3.9mmol/L (3.5-5.1) Chloride Level 104mmol/L (98-107) 105mmol/L (98-107) Carbon Dioxide Level 27mmol/L (21-32) 26mmol/L (21-32) Anion Gap 11 (6-14) 9 (6-14) Blood Urea Nitrogen 10mg/dL (7-20) 5mg/dL (7-20) Creatinine 0.8mg/dL (0.6-1.0) 0.7mg/dL (0.6-1.0) Estimated GFR (Cockcroft-Gault) 107.6 125.5 BUN/Creatinine Ratio 13 (6-20) Glucose Level 114mg/dL (70-99) 120mg/dL (70-99) Calcium Level 9.0mg/dL (8.5-10.1) 8.8mg/dL (8.5-10.1) Total Bilirubin 0.2mg/dL (0.2-1.0) Aspartate Amino Transf (AST/SGOT) 47U/L (15-37) Alanine Aminotransferase (ALT/SGPT) 29U/L (14-59) Alkaline Phosphatase 58U/L (46-116) Total Protein 7.4g/dL (6.4-8.2) Albumin 3.6g/dL (3.4-5.0) Albumin/Globulin Ratio 0.9 (1.0-1.7) Lipase 131U/L (73-393) Urine Collection Type Unknown Urine Color Yellow Urine Clarity Cloudy Urine pH 8.0 Urine Specific [place] >=1.030 Urine Protein 30mg/dL (NEG-TRACE) Urine Glucose (UA) Negativemg/dL (NEG) Urine Ketones (Stick) Negativemg/dL (NEG) Urine Blood Negative (NEG) Urine Nitrite Negative (NEG) Urine Bilirubin Negative (NEG) Urine Urobilinogen Dipstick 1.0mg/dL (0.2 mg/dL) Urine Leukocyte Esterase Negative (NEG) Urine RBC 3-5/HPF (0-2) Urine WBC Occ/HPF (0-4) Urine Squamous Epithelial Cells Many/LPF Urine Bacteria Moderate/HPF (0-FEW) Urine Mucus Mod/LPF Laboratory Tests Test 01/27/17 03:32 White Blood Count 12.7x10^3/uL (4.0-11.0) Red Blood Count 4.86x10^6/uL (3.50-5.40) Hemoglobin 10.7g/dL (12.0-15.5) Hematocrit 34.2% (36.0-47.0) Mean Corpuscular Volume 70fL (79-100) Mean Corpuscular Hemoglobin 22pg (25-35) Mean Corpuscular Hemoglobin Concent 31g/dL (31-37) Red Cell Distribution Width 15.2% (11.5-14.5) Platelet Count 252x10^3/uL (140-400) Neutrophils (%) (Auto) 84% (31-73) Lymphocytes (%) (Auto) 11% (24-48) Monocytes (%) (Auto) 5% (0-9) Eosinophils (%) (Auto) 0% (0-3) Basophils (%) (Auto) 0% (0-3) Neutrophils # (Auto) 10.6x10^3uL (1.8-7.7) Lymphocytes # (Auto) 1.4x10^3/uL (1.0-4.8) Monocytes # (Auto) 0.6x10^3/uL (0.0-1.1) Eosinophils # (Auto) 0.0x10^3/uL (0.0-0.7) Basophils # (Auto) 0.0x10^3/uL (0.0-0.2) Sodium Level 140mmol/L (136-145) Potassium Level 3.9mmol/L (3.5-5.1) Chloride Level 105mmol/L (98-107) Carbon Dioxide Level 26mmol/L (21-32) Anion Gap 9 (6-14) Blood Urea Nitrogen 5mg/dL (7-20) Creatinine 0.7mg/dL (0.6-1.0) Estimated GFR (Cockcroft-Gault) 125.5 Glucose Level 120mg/dL (70-99) Calcium Level 8.8mg/dL (8.5-10.1) Medications Current Medications Fentanyl Citrate 50 mcg 50 mcg PRN Q15MIN PRN IV PAIN GREATER THAN 3/10 Last administered on 01/26/17t 13:26; Start 01/26/17 at 02:00; Stop 01/26/17 at 15:52 ; Status DC Sodium Chloride (Iv Sodium Chloride 0.9% 1000ml Bag) 1,000 ml @ 1,000 mls/hr Q1H IV Last administered on 01/26/17 02:11; Start 01/26/17 at 02:00; Stop at 02:59; Status DC Ondansetron HCl (Zofran) 4 mg 1X ONCE IV Last administered on 01/26/17 02:11 ; Start 01/26/17 at 02:00; Stop 01/26/17 at 02:01; Status DC Famotidine (Pepcid) 20 mg 1X ONCE IVP Last administered on 01/26/17 02:11; Start 01/26/17 at 02:00; Stop 01/26/17 at 02:01; Status DC Ondansetron HCl (Zofran) 4 mg PRN Q8HRS PRN IV NAUSEA/VOMITING; Start 01/26/17 at 04:00; Stop 01/27/17 at 03:59; Status DC Fentanyl Citrate (Fentanyl 2ml Vial) 50 mcg PRN Q1HR PRN IV PAIN Last administered on 01/26/17 20:23; Start 01/26/17 at 04:00; Stop 01/27/17 at 03:59 ; Status DC Dexamethasone Sodium Phosphate (Decadron) 20 mg STK-MED ONCE .ROUTE ; Start at 09:51; Stop 01/26/17 at 09:52; Status DC Ondansetron HCl 4 mg 4 mg STK-MED ONCE .ROUTE ; Start 01/26/17 at 09:51; Stop at 09:52; Status DC Propofol (Diprivan) 20 ml @ As Directed STK-MED ONCE IV ; Start 01/26/17 at 09: 51; Stop 01/26/17 at 09:52; Status DC Lidocaine HCl 100 mg STK-MED ONCE .ROUTE ; Start 01/26/17 at 09:51; Stop at 09:52; Status DC Midazolam HCl (Versed) 2 mg STK-MED ONCE .ROUTE ; Start 01/26/17 at 09:51; Stop 01/26/17 at 09:52; Status DC Rocuronium [place] (Zemuron) 50 mg STK-MED ONCE .ROUTE ; Start 01/26/17 at 09:52 ; Stop 01/26/17 at 09:53; Status DC Fentanyl Citrate (Fentanyl 2ml Vial) 100 mcg STK-MED ONCE .ROUTE ; Start at 09:54; Stop 01/26/17 at 09:55; Status DC Succinylcholine Chloride (Anectine) 200 mg STK-MED ONCE .ROUTE ; Start 01/26/17 at 09:54; Stop 01/26/17 at 09:55; Status DC Cellulose 1 each STK-MED ONCE .ROUTE ; Start 01/26/17 at 11:17; Stop 01/26/17 at 11:18; Status DC Bupivacaine HCl/ Epinephrine Bitart (Sensorcain-Mpf Epi 0.5%-1:270070) 30 ml STK -MED ONCE .ROUTE Last administered on 01/26/17 12:04; Start 01/26/17 at 11:17 ; Stop 01/26/17 at 11:18; Status DC Iohexol 50 ml 50 ml STK-MED ONCE .ROUTE Last administered on 01/26/17 12:04; Start 01/26/17 at 11:17; Stop 01/26/17 at 11:18; Status DC Piperacillin Sod/ Tazobactam Sod/ Sodium Chloride (Zosyn/Iv Sodium Chloride 0.9 % 50ml) 50 ml @ 100 mls/hr 1X PREOP IV Last administered on 01/26/17 12:14; Start 01/26/17 at 11:45 Famotidine (Pepcid) 20 mg STK-MED ONCE .ROUTE ; Start 01/26/17 at 11:59; Stop at 12:00; Status DC Famotidine (Pepcid) 20 mg STK-MED ONCE .ROUTE ; Start 01/26/17 at 12:00; Stop at 12:01; Status DC Ketorolac Tromethamine (Toradol For Or Only) 30 mg STK-MED ONCE INJ ; Start at 12:01; Stop 01/26/17 at 12:02; Status DC Glycopyrrolate (Robinul) 1 mg STK-MED ONCE .ROUTE ; Start 01/26/17 at 12:26; Stop 01/26/17 at 12:27; Status DC Neostigmine Methylsulfate 5 mg STK-MED ONCE .ROUTE ; Start 01/26/17 at 12:26; Stop 01/26/17 at 12:27; Status DC Sevoflurane (Ultane) 30 ml STK-MED ONCE IH ; Start 01/26/17 at 13:02; Stop 01/26 at 13:03; Status DC Prochlorperazine Edisylate (Compazine) 10 mg STK-MED ONCE .ROUTE ; Start at 13:14; Stop 01/26/17 at 13:15; Status DC Oxycodone/ Acetaminophen (Percocet 5/325) 1-2 PRN Q4HRS PRN PO PAIN; Start at 13:30; Stop 01/26/17 at 13:31; Status DC Oxycodone/ Acetaminophen (Percocet 5/325) 1 tab PRN Q4HRS PRN PO PAIN Last administered on 01/27/17 08:36; Start 01/26/17 at 13:31 Oxycodone/ Acetaminophen (Percocet 5/325) 2 tab PRN Q4HRS PRN PO PAIN; Start at 13:45 Fentanyl Citrate (Fentanyl 2ml Vial) 25 mcg PRN Q5MIN PRN IV Acute Pain Last administered on 01/26/17 13:43; Start 01/26/17 at 14:45; Stop 01/26/17 at 15:53 ; Status DC Fentanyl Citrate (Fentanyl 2ml Vial) 50 mcg PRN Q5MIN PRN IV Acute Pain; Start 01/26/17 at 14:45; Stop 01/26/17 at 15:53; Status DC Prochlorperazine Edisylate (Compazine) 5 mg PRN Q6HRS PRN IV Nausea/Vomiting, 1st Choice Last administered on 01/26/17 13:25; Start 01/26/17 at 14:45; Stop 01/27/17 at 14:44 Vitals/I & O Vital Sign - Last 24 Hours 01/26/17 01/26/17 01/26/17 01/26/17 12:52 13:07 13:19 13:22 Temp 100.1 100.1 Pulse 68 68 62 Resp 18 16 16 14 B/P 141/82 135/76 126/72 Pulse Ox 100 100 100 96 O2 Delivery Simple Mask Room Air Simple Mask Room Air O2 Flow Rate 10 10.0 01/26/17 01/26/17 01/26/17 01/26/17 13:26 13:37 13:43 14:15 Temp 98.4 98.3 98.4 98.3 Pulse 65 80 Resp 16 16 16 18 B/P 119/67 109/66 Pulse Ox 95 97 97 O2 Delivery Simple Mask Room Air Room Air Room Air 01/26/17 01/26/17 01/26/17 01/26/17 14:30 14:45 15:00 15:30 Temp 98.3 98.3 Pulse 74 63 61 61 Resp 18 18 18 18 B/P 106/62 116/72 114/68 108/60 Pulse Ox 97 97 96 95 O2 Delivery Room Air Room Air Room Air Room Air 01/26/17 01/26/17 01/26/17 01/26/17 16:00 16:29 17:00 18:00 Temp 98.2 98.2 Pulse 60 61 84 Resp 18 18 18 18 B/P 111/70 107/74 111/76 Pulse Ox 97 100 97 98 O2 Delivery Room Air Room Air Room Air Room Air 01/26/17 01/26/17 01/26/17 01/26/17 20:09 20:23 20:23 20:53 Resp 20 20 20 Pulse Ox 98 98 98 O2 Delivery Room Air Room Air Room Air Room Air 01/26/17 01/26/17 01/27/17 01/27/17 21:23 23:27 03:32 07:00 Temp 97.9 98.1 98.2 97.9 98.1 98.2 Pulse 63 55 59 Resp 20 18 16 B/P 88/44 98/41 104/52 Pulse Ox 98 98 100 99 O2 Delivery Room Air Room Air 01/27/17 01/27/17 08:36 09:37 O2 Delivery Room Air Room Air Intake and Output 01/26/17 01/26/17 01/27/17 15:00 23:00 07:00 Intake Total 1000 ml 800 ml Output Total 50 ml Balance -50 ml 1000 ml 800 ml CASTLE,NIAL K III DO Jan 27, 2017 11:07
--- NOTE | 2017-01-27 12:41 | PDOC ---
SURGICAL PROGRESS NOTE Subjective just ate full lunch looks very comfortable states the pain pill she got "did absolutely nothing" Vital Signs Vital Signs Date Time Temp Pulse Resp B/P Pulse Ox O2 Delivery O2 Flow Rate FiO2 01/27/17 09:37 Room Air 01/27/17 07:00 98.2 59 16 104/52 99 98.2 01/26/17 13:19 10.0 I&O Intake and Output 01/27/17 07:00 Intake Total 1800 ml Output Total 50 ml Balance 1750 ml Intake Oral 800 ml IV Total 1000 ml Output Urine Total 50 ml # Voids 4 PATIENT HAS A MURPHY: No General: Alert, Oriented X3, No acute distress Labs Laboratory Tests Test 01/26/17 01:22 01/26/17 01:39 01/26/17 02:05 01/27/17 03:32 Bedside Urine HCG, Qualitative Hcg negative (Negative) White Blood Count 13.3x10^3/uL (4.0-11.0) 12.7x10^3/uL (4.0-11.0) Red Blood Count 5.20x10^6/uL (3.50-5.40) 4.86x10^6/uL (3.50-5.40) Hemoglobin 11.5g/dL (12.0-15.5) 10.7g/dL (12.0-15.5) Hematocrit 37.0% (36.0-47.0) 34.2% (36.0-47.0) Mean Corpuscular Volume 71fL (79-100) 70fL (79-100) Mean Corpuscular Hemoglobin 22pg (25-35) 22pg (25-35) Mean Corpuscular Hemoglobin Concent 31g/dL (31-37) 31g/dL (31-37) Red Cell Distribution Width 14.9% (11.5-14.5) 15.2% (11.5-14.5) Platelet Count 255x10^3/uL (140-400) 252x10^3/uL (140-400) Neutrophils (%) (Auto) 51% (31-73) 84% (31-73) Lymphocytes (%) (Auto) 39% (24-48) 11% (24-48) Monocytes (%) (Auto) 7% (0-9) 5% (0-9) Eosinophils (%) (Auto) 3% (0-3) 0% (0-3) Basophils (%) (Auto) 1% (0-3) 0% (0-3) Neutrophils # (Auto) 6.7x10^3uL (1.8-7.7) 10.6x10^3uL (1.8-7.7) Lymphocytes # (Auto) 5.2x10^3/uL (1.0-4.8) 1.4x10^3/uL (1.0-4.8) Monocytes # (Auto) 1.0x10^3/uL (0.0-1.1) 0.6x10^3/uL (0.0-1.1) Eosinophils # (Auto) 0.3x10^3/uL (0.0-0.7) 0.0x10^3/uL (0.0-0.7) Basophils # (Auto) 0.1x10^3/uL (0.0-0.2) 0.0x10^3/uL (0.0-0.2) Platelet Estimate Adequate (ADEQUATE) Giant Platelets Occ Hypochromasia Mod Microcytosis Mod Target Cells Occ Tear Drop Cells Occ Sodium Level 142mmol/L (136-145) 140mmol/L (136-145) Potassium Level 4.0mmol/L (3.5-5.1) 3.9mmol/L (3.5-5.1) Chloride Level 104mmol/L (98-107) 105mmol/L (98-107) Carbon Dioxide Level 27mmol/L (21-32) 26mmol/L (21-32) Anion Gap 11 (6-14) 9 (6-14) Blood Urea Nitrogen 10mg/dL (7-20) 5mg/dL (7-20) Creatinine 0.8mg/dL (0.6-1.0) 0.7mg/dL (0.6-1.0) Estimated GFR (Cockcroft-Gault) 107.6 125.5 BUN/Creatinine Ratio 13 (6-20) Glucose Level 114mg/dL (70-99) 120mg/dL (70-99) Calcium Level 9.0mg/dL (8.5-10.1) 8.8mg/dL (8.5-10.1) Total Bilirubin 0.2mg/dL (0.2-1.0) Aspartate Amino Transf (AST/SGOT) 47U/L (15-37) Alanine Aminotransferase (ALT/SGPT) 29U/L (14-59) Alkaline Phosphatase 58U/L (46-116) Total Protein 7.4g/dL (6.4-8.2) Albumin 3.6g/dL (3.4-5.0) Albumin/Globulin Ratio 0.9 (1.0-1.7) Lipase 131U/L (73-393) Urine Collection Type Unknown Urine Color Yellow Urine Clarity Cloudy Urine pH 8.0 Urine Specific [place] >=1.030 Urine Protein 30mg/dL (NEG-TRACE) Urine Glucose (UA) Negativemg/dL (NEG) Urine Ketones (Stick) Negativemg/dL (NEG) Urine Blood Negative (NEG) Urine Nitrite Negative (NEG) Urine Bilirubin Negative (NEG) Urine Urobilinogen Dipstick 1.0mg/dL (0.2 mg/dL) Urine Leukocyte Esterase Negative (NEG) Urine RBC 3-5/HPF (0-2) Urine WBC Occ/HPF (0-4) Urine Squamous Epithelial Cells Many/LPF Urine Bacteria Moderate/HPF (0-FEW) Urine Mucus Mod/LPF Laboratory Tests Test 01/27/17 03:32 White Blood Count 12.7x10^3/uL (4.0-11.0) Red Blood Count 4.86x10^6/uL (3.50-5.40) Hemoglobin 10.7g/dL (12.0-15.5) Hematocrit 34.2% (36.0-47.0) Mean Corpuscular Volume 70fL (79-100) Mean Corpuscular Hemoglobin 22pg (25-35) Mean Corpuscular Hemoglobin Concent 31g/dL (31-37) Red Cell Distribution Width 15.2% (11.5-14.5) Platelet Count 252x10^3/uL (140-400) Neutrophils (%) (Auto) 84% (31-73) Lymphocytes (%) (Auto) 11% (24-48) Monocytes (%) (Auto) 5% (0-9) Eosinophils (%) (Auto) 0% (0-3) Basophils (%) (Auto) 0% (0-3) Neutrophils # (Auto) 10.6x10^3uL (1.8-7.7) Lymphocytes # (Auto) 1.4x10^3/uL (1.0-4.8) Monocytes # (Auto) 0.6x10^3/uL (0.0-1.1) Eosinophils # (Auto) 0.0x10^3/uL (0.0-0.7) Basophils # (Auto) 0.0x10^3/uL (0.0-0.2) Sodium Level 140mmol/L (136-145) Potassium Level 3.9mmol/L (3.5-5.1) Chloride Level 105mmol/L (98-107) Carbon Dioxide Level 26mmol/L (21-32) Anion Gap 9 (6-14) Blood Urea Nitrogen 5mg/dL (7-20) Creatinine 0.7mg/dL (0.6-1.0) Estimated GFR (Cockcroft-Gault) 125.5 Glucose Level 120mg/dL (70-99) Calcium Level 8.8mg/dL (8.5-10.1) Problem List Problems Medical Problems: (1) Acute cholecystitis Status: Acute Assessment/Plan POD 1 l/s cholecystectomy home today from surgery standpoint if pain is controlled f/u with Dr Guajardo Problems: GERSON BRAVO MD Jan 27, 2017 12:41
--- NOTE | 2017-01-28 04:43 | ACF ---
Admission Forms Criteria GALLBLADDER OR BILE DUCT INFLAMMATION OR STONE Clinical Indications for Admission to Inpatient Care ( Place 'X' for any and all applicable criteria): Admission is indicated for patients with ANY ONE of the following(1)(2)(3)(4)(5) : [ ]I. Acute cholecystitis as indicated by ALL of the following: [ ]a) Right upper quadrant pain, mass, or tenderness [ ]b) Systemic signs of inflammation indicated by ANY ONE of the following: [ ]i) Fever [ ]ii) C-reactive protein level greater than 10 mg/L (95 nmol/L) [ ]iii) White blood cell count greater than 10,000/mm3 (10 x109/L) or less than 4000/mm3 (4 x109/L) [X]II. Inpatient admission required rather than observation care (Also use Gallbladder or Bile Duct Inflammation or Stone: Observation Care as appropriate) because of ANY ONE of the following: [ ]a) Common bile duct obstruction diagnosed [ ]b) Vomiting that is severe or persistent [X]c) Severe pain requiring acute inpatient management [ ]d) Signs of intestinal obstruction or peritonitis [A] [ ]e) Severe electrolyte abnormalities requiring inpatient care [ ]f) Absent bowel sounds with complete ileus(8) [ ]g) Hemodynamic instability [ ]h) High fever or infection requiring inpatient admission as indicated by ANY ONE of the following (9): [ ]1) Appropriate outpatient or observation care antimicrobial Treatment. unavailable, not effective, or not feasible [ ]2) Temperature greater than 104.9 degrees F (40.5 degrees C) (oral) [ ]3) Temperature greater than 103.1 degrees F (39.5 degrees C) (oral) or less than 96.8 degrees F (36 degrees C) (rectal) that does not respond to all emergency treatment measures [ ]4) Documented bacteremia [ ]i) IV fluid to replace significant ongoing losses (greater than 3 L/m2 per day) [ ]j) Percutaneous or open drainage (eg, abscess, biliary tract) procedures [ ]k) Immediate inpatient surgery [ ]l) Other condition, treatment or monitoring requiring inpatient admission [ ]III. Acute cholangitis as indicated by ALL of the following(9)(10): [ ]a) Systemic signs of inflammation indicated by ANY ONE of the following: [ ]i) Fever [ ]ii) C-reactive protein level greater than 10 mg/L (95 nmol /L) [ ]iii) White blood cell count greater than 10,000/mm3 (10 x109/L) or less than 4000/mm3 (4 x109/L) [ ]b) Evidence of common bile duct disease indicated by ANY ONE of the following: [ ]i) Total serum bilirubin level greater than or equal to 2 mg/dL (34 micromoles/L) [ ]ii) Liver function test (alkaline phosphatase (ALP), r- glutamyltransferase (GGT), aspartate aminotransferase (AST), or alanine aminotransferase (ALT)) greater than 1.5 times the upper limit of normal[B] [ ]iii) Hepatobiliary imaging showing biliary dilatation or evidence of etiology (eg, stricture, stone, previously placed stent) Extended stay beyond goal length of stay may be needed for (1)(2)): [ ]a) Bacteremia or Hemodynamic instability [ ]b) Cholecystectomy [ ]c) Other surgical procedure(24) [ ]d) Percutaneous or endoscopic ultrasound-guided cholecystostomy The original [facility] content created by [facility] has been revised. The portions of the content which have been revised are identified through the use of italic text or in bold, and [facility] has neither reviewed nor approved the modified material. All other unmodified content is copyright [facility]. Please see references footnoted in the original [facility] edition 2016 Admission Criteria Met?: Yes NEDRA CLARK Jan 28, 2017 04:43
--- NOTE | 2017-01-28 14:25 | PATHOLOGY ---
PATHOLOGY REPORT * * * * * * * * FINAL DIAGNOSIS: Gallbladder, cholecystectomy: - Cholelithiasis. - Chronic cholecystitis. COMMENT: There is no evidence of malignancy. (JPM:; d/t: 01/28/17) REPORT ELECTRONICALLY SIGNED BY: Maxi Miller M.D. DATE/TIME: 01/28/2017 14:24 * * * * * * * * GROSS PATHOLOGY: Received in formalin labeled "Mayo Novoa, gallbladder," is a 10.8 x 2.5 x 2.4 cm, intact gallbladder with blue-west serosal surfaces. Opening the gallbladder reveals a velvety, bile-stained mucosa and an average wall thickness of 0.1 cm. Calculi are present displaying a yellow-lopez, nodular appearance, and no masses are noted grossly. Barrel Rib Matting Machine Operator sections from the body and fundus are submitted along with the proximal margin in cassette A1. (CAA; 01/27/2017) INITIAL CPT CODE(S): A; 46216 Professional services performed [place] [address] Technical services performed by [facility] at [address] [place] [address] [address] [address]. Guajardo SPECIMEN(S) RECEIVED: A.Gallbladder CLINICAL HISTORY: Acute cholecystitis PATIENT: MAYO NOVOA /AGE: 7 1995 (Age: 21) PATIENT #: [id number] ALT CASE #: SPECIMEN COLLECTION DATE: 01/26/2017 SPECIMEN RECEIVED DATE: 01/27/2017 [facility] - [id number] [place] [address] - PHONE: [phone] * * * END OF REPORT * * *
== END 2017-01-27 14:30 | disposition home or self-care (01) | DRG 419 ==
LOC: ER 01:25 → 4 NORTH 03:23
PROVIDERS: ADMIT Internal Medicine; ATTEND Internal Medicine
PROC: BF101ZZ Fluoroscopy of Bile Ducts using Low Osmolar Contrast (ICD-10-PCS; 2017-01-26)
PROC: 0FT44ZZ Resection of Gallbladder, Percutaneous Endoscopic Approach (ICD-10-PCS; principal; 2017-01-26 11:00)
DX: K80.00 Calculus of gallbladder with acute cholecystitis without obstruction (principal); E66.9 Obesity, unspecified; Z68.30 Body mass index [BMI] 30.0-30.9, adult
CPT/HCPCS: 36415; 74300; 76705; 80048; 80053; 81001; 81025; 83690; 85007; 85027; 87086; 93005; 96374; 96375; C1769; C1782; J0330; J0780; J1100; J1885; J2250; J2405; J2543; J2704; J2710; J3010; J3490; J7030; J7120; Q9967; S0028; 99285-25